=== PATIENT | male | born 1985 | race Two or more races ===

== ENCOUNTER 2017-07-24 21:04 | Emergency (ER) | payer MEDICAID ==
[~2017-07-24] VITALS: Ht 180.3 cm; Wt 78.0 kg
[2017-07-24] MEDS ORDERED: FAMO10TA31 PO (21:25)
[2017-07-24] MEDS ORDERED: MAALOX/HYOSCYAMINE/LIDOCAINE 45 ML BTL ONE (21:45)
[2017-07-24] MEDS ORDERED: FAMOTIDINE 20 MG TABLET ONE (21:45)
[2017-07-24 21:51] LABS: HEMATOCRIT 48.1 % (39.2-51.8); HEMOGLOBIN 16.3 g/dL (13.7-18.0); WHITE BLOOD COUNT 7.3 x10^3/uL (3.4-10)
[2017-07-24] MEDS ORDERED: MAALOX/HYOSCYAMINE/LIDOCAINE 45 ML BTL PO ONE (22:00)
[2017-07-24] MEDS ORDERED: FAMOTIDINE 20 MG TABLET PO ONE (22:00)
[2017-07-24 22:04] LABS: ASPARTATE AMINO TRANSFERASE 129 U/L (15-37); BLOOD UREA NITROGEN 9 mg/dL (7-18)
[2017-07-24 23:05] VITALS: BP 116/64
== END 2017-07-24 23:07 | disposition home or self-care (01) ==
LOC: ED 22:56
DX: K29.20 Alcoholic gastritis without bleeding (principal); F10.10 Alcohol abuse, uncomplicated; R94.5 Abnormal results of liver function studies
CPT/HCPCS: 36415; 80053; 83690; 85025; 85610; 99284

== ENCOUNTER 2017-11-18 19:38 | Emergency (ER) | payer MEDICAID ==
[~2017-11-18] VITALS: Ht 180.3 cm; Wt 72.7 kg
[~2017-11-18 19:38] MED LIST: FAMO10TA31 PO
[2017-11-18] MEDS ORDERED: ONDANSETRON 2MG/ML, 2ML ONE (20:13)
[2017-11-18] MEDS ORDERED: MORPHINE SULFATE 4 MG/ML, 1ML ONE (20:13)
[2017-11-18] MEDS ORDERED: ASPIRIN 81 MG TABLET CHEW ONE (20:14)
[2017-11-18 20:27] LABS: BASOPHILS # (AUTO) 0.05 x10^3/uL (0-0.1); BASOPHILS % (AUTO) 1 % (0-1); EOSINOPHILS # (AUTO) 0.23 x10^3/uL (0-0.4); EOSINOPHILS % (AUTO) 3 % (1-7); LYMPHOCYTES # (AUTO) 2.47 x10^3/uL (1-3.4); LYMPHOCYTES % (AUTO) 29 % (22-44); MD NO; MEAN CORPUSCULAR HEMOGLOBIN 32.9 pg (27.5-34.5); MEAN CORPUSCULAR HGB CONC 34.1 g/dL (33.2-36.2); MEAN CORPUSCULAR VOLUME 96.4 fL (81-97); MEAN PLATELET VOLUME 8.8 fL (7.4-10.4); MONOCYTES % (AUTO) 8 % (2-9); NEUTROPHILS # (AUTO) 5.11 x10^3/uL (1.8-6.8); NEUTROPHILS % (AUTO) 60 % (42-75); PLATELET COUNT 235 x10^3/uL (130-400); RED BLOOD COUNT 4.96 x10^6/uL (4.38-5.82); RED CELL DISTRIBUTION WIDTH 13.6 % (9.4-14.8)
[2017-11-18] MEDS ORDERED: MORPHINE SULFATE 4 MG/ML, 1ML IVPush PRN (20:30)
[2017-11-18] MEDS ORDERED: ONDANSETRON 2MG/ML, 2ML IVPush ONE (20:30)
[2017-11-18] MEDS ORDERED: SODIUM CHLORIDE FLUSH 10ML SYR IVF ONE (20:30)
[2017-11-18] MEDS ORDERED: SODIUM CHLORIDE 0.9% 1,000ML IVBOLUS ONE (20:30)
[2017-11-18] MEDS ORDERED: ASPIRIN 81 MG TABLET CHEW PO ONE (20:30)
[2017-11-18 20:33] LABS: ALANINE AMINOTRANSFERASE 492 U/L (12-78); ANION GAP 6 mmol/L (5-15); CALCIUM 8.8 mg/dL (8.5-10.1); CHLORIDE 105 mmol/L (98-107); CREATININE 1.21 mg/dL (0.7-1.3)
[2017-11-18 20:37] LABS: ALKALINE PHOSPHATASE 111 U/L (45-117); BILIRUBIN,TOTAL 0.8 mg/dL (0.2-1.0); TOTAL PROTEIN 7.7 g/dL (6.4-8.2); TROPONIN I < 0.015 ng/mL (0.000-0.045)
[2017-11-18 21:15] VITALS: BP 124/85
== END 2017-11-18 21:17 | disposition home or self-care (01) ==
LOC: ED 21:11
DX: R07.89 Other chest pain (principal); R74.0 Nonspecific elevation of levels of transaminase and lactic acid dehydrogenase [LDH]; F10.20 Alcohol dependence, uncomplicated; K29.00 Acute gastritis without bleeding; K29.20 Alcoholic gastritis without bleeding; R94.5 Abnormal results of liver function studies; Z82.49 Family history of ischemic heart disease and other diseases of the circulatory system
CPT/HCPCS: 36415; 71046; 80053; 84484; 85025; 93005; 96374; 96375; 99285; J2405; J7030

== ENCOUNTER 2020-02-13 16:14 | Emergency (ER) | payer SELFPAY ==
[~2020-02-13] VITALS: Ht 177.8 cm; Wt 83.8 kg
--- NOTE | 2020-02-13 17:37 | NUR ---
MT: PT AMBULATORY WITH STEADY GAIT TO ROOM AT THIS TIME. LAVELLE
--- NOTE | 2020-02-13 18:19 | NUR ---
PT IN GOWN IN [facility]. PT AMBULATES TO RESTROOM WITH STEADY GAIT TO PROVIDE UA AT THIS TIME.
--- NOTE | 2020-02-13 18:38 | NUR ---
PT URINE COLLECTED AND TUBED TO THIS LAB.
[2020-02-13 18:42] LABS: MICROSCOPIC NOT IND
[2020-02-13 18:45] LABS: ALBUMIN 4.2 g/dL (3.4-5.0); ANION GAP 9 mmol/L (5-15); CALCIUM 8.9 mg/dL (8.5-10.1); CHLORIDE 106 mmol/L (98-107); CREATININE 0.95 mg/dL (0.7-1.3)
[2020-02-13 18:46] LABS: BASOPHILS # (AUTO) 0.06 x10^3/uL (0-0.1); BASOPHILS % (AUTO) 1 % (0-1); EOSINOPHILS # (AUTO) 0.25 x10^3/uL (0-0.4); EOSINOPHILS % (AUTO) 3 % (1-7); LYMPHOCYTES # (AUTO) 2.86 x10^3/uL (1-3.4); LYMPHOCYTES % (AUTO) 30 % (22-44); MD NO; MEAN CORPUSCULAR HEMOGLOBIN 33.9 pg (27.5-34.5); MEAN CORPUSCULAR HGB CONC 33.8 g/dL (33.2-36.2); MEAN CORPUSCULAR VOLUME 100.3 fL (81-97); MEAN PLATELET VOLUME 9.3 fL (7.4-10.4); MONOCYTES # (AUTO) 0.61 x10^3/uL (0.2-0.8); MONOCYTES % (AUTO) 6 % (2-9); NEUTROPHILS # (AUTO) 5.64 x10^3/uL (1.8-6.8); NEUTROPHILS % (AUTO) 60 % (42-75); PLATELET COUNT 202 x10^3/uL (130-400); RED BLOOD COUNT 4.69 x10^6/uL (4.38-5.82); RED CELL DISTRIBUTION WIDTH 14.1 % (9.4-14.8)
[2020-02-13 19:45] VITALS: BP 138/79
[2020-02-13] MEDS ORDERED: CHLORDIAZEPOXIDE 25 MG CAPSULE ONE (20:44)
[2020-02-13 20:53] LABS: ALBUMIN 4.1 g/dL (3.4-5.0); BILIRUBIN, DIRECT 0.4 mg/dL (0.1-0.2)
[2020-02-13 20:55] LABS: TOTAL PROTEIN 8.3 g/dL (6.4-8.2)
--- NOTE | 2020-02-13 20:58 | NUR ---
MEDICATED PER EMAR FOR ANTICIPATED ETOH WITHDRAWAL MD TO BEDSIDE TO ADD LFTS MD PERFORMED BEDSIDE LIVER ULTRASOUND PSTIENT UPDATED ON ESTIMATED POC
[2020-02-13] MEDS ORDERED: CHLORDIAZEPOXIDE 25 MG CAPSULE PO PRN (21:00)
--- NOTE | 2020-02-13 21:07 | NUR ---
PLACED UP FOR RECHECK (ALL TESTING RESULTED)
[2020-02-13 21:54] LABS: BILIRUBIN,INDIRECT 0.6 mg/dL (0.0-2.0)
== END 2020-02-13 22:26 | disposition home or self-care (01) ==
LOC: ED 19:35
DX: R10.11 Right upper quadrant pain (principal); F10.239 Alcohol dependence with withdrawal, unspecified; R00.0 Tachycardia, unspecified; F17.200 Nicotine dependence, unspecified, uncomplicated; Y90.9 Presence of alcohol in blood, level not specified
CPT/HCPCS: 36415; 80048; 80076; 81003; 82040; 83690; 85025; 99284